=== PATIENT | female | born 1975 | race Hispanic/Latino ===

== ENCOUNTER 2016-12-16 14:08 | Inpatient (IN) | payer OTHER ==
[2016-12-16] MEDS ORDERED: Lactated Ringer's 1,000 ML IV PRN (14:31)
[2016-12-16] MEDS ORDERED: Carboprost 250 mCg/mL Inj IM PRN ×2 (14:35→15:30)
[2016-12-16] MEDS ORDERED: Betameth Ace-Betam SodPhos 6 mg/mL 5 mL Inj IM ONE (14:35)
[2016-12-16] MEDS ORDERED: Magnesium Sulf 20 Gm/500mL H2O 20 GM in IV Premix 1 EACH IV SCH (14:35)
[2016-12-16] MEDS ORDERED: Calcium GLUCOnate 10% (Gm) 1 Gm/10 mL Inj IV PRN (14:35)
[2016-12-16] MEDS ORDERED: Hemorrhage Kit, Post Partum XX ONE ×2 (14:35→15:30)
[2016-12-16] MEDS ORDERED: Sodium Chloride LOK Flush 10 mL Syringe IVFLUSH PRN (14:35)
[2016-12-16] MEDS ORDERED: Oxytocin 10 Unit/mL Inj IM PRN ×2 (14:35→15:30)
[2016-12-16] MEDS ORDERED: Magnesium Sulf 4 Gm/100 mL H2O 4 GM in IV Premix 1 EACH IV ONE (14:35)
[2016-12-16] MEDS ORDERED: Oxytocin 30 Units/500 mL LR 30 UNITS in IV Premix 1 EACH IV PRN ×2 (14:35→15:30)
[2016-12-16] MEDS ORDERED: Methylergonovine 0.2 mg/mL Inj IM PRN ×2 (14:35→15:30)
[2016-12-16] MEDS ORDERED: Magnesium Sulfate 4 Gm/100 mL Water Premix IV ONE (14:36)
[2016-12-16 15:19] LABS: Mean Corpuscular Hemoglobin 26.6 pg (27.0-35.0); Mean Corpuscular Volume 79.8 fL (81-100)
[2016-12-16] MEDS ORDERED: Lactated Ringer's 1,000 ML IV SCH (15:29)
[2016-12-16] MEDS ORDERED: LANOlin HPA 7 Gm Ointment TOPICAL PRN (15:30)
[2016-12-16] MEDS ORDERED: oxyCODONE-Acetamin 5-325 mg Tablet PO PRN (15:30)
[2016-12-16] MEDS ORDERED: Witch Hazel-Glycerin Pads TOPICAL PRN (15:30)
[2016-12-16] MEDS ORDERED: Benzocaine (Dermoplast) 20% 60 Gm Spray TOPICAL PRN (15:30)
--- NOTE | 2016-12-16 15:36 | HP ---
[address] [address] HISTORY AND PHYSICAL PATIENT: KAREN GILES : 1975 MR#: [id number] ADMIT: 12/16/2016 JOB ID: [id number] HISTORY OF PRESENT ILLNESS: The patient is a 40-year-old, 3, para one, estimated due date March 31, 2017, at 25 weeks. Presents to Labor and Delivery with complaint of spontaneous rupture of membranes at 1:45 p.m. The patient denies contractions. She reports leaking of clear amniotic fluid. She has a history of one prior delivery in 2003. Past medical history was significant for diabetes type 2 on insulin and anemia. care was with [facility], her diabetes was well controlled. The second trimester ultrasound was normal and generic testing was done and was negative. SOCIAL HISTORY: Patient denies smoking, alcohol, or illicit or recreational drug use. ALLERGIES: NKDA. PAST MEDICAL HISTORY: Diabetes type 2, anemia, obesity. MEDICATIONS: Ferrous sulfate 325 mg p.o. daily, vitamin 1 tablet p.o. daily, metformin 1000 mg p.o. b.i.d., Lantus 33 units subcu q.h.s. PHYSICAL EXAMINATION: Vital signs: Blood pressure 137/57, pulse 97, temperature 37.0. HEENT: PERRLA. Chest: Good respiratory effort. Clear bilaterally. Cardiovascular: Regular rate and rhythm. Abdomen: Gravid. Nondistended, nontender. Extremities: No pitting edema. Pelvic: AmniSure testing is positive. There is pooling of amniotic fluid in the posterior fornix of the vagina. The cervix is fingertip long. The station is high -4. The amniotic fluid is clear. ASSESSMENT AND PLAN: A 40-year-old, 3, para 1, at 25 weeks, estimated due date March 31, 2017, with spontaneous rupture of membranes at 1:45 p.m. today, prior history of delivery x1, diabetes type 2 on insulin, and iron deficiency anemia being admitted to Labor and Delivery. IV hydration is started with lactated Ringer's at 75 mL/h. Magnesium is started 4 g IV bolus, followed by 2 g/hour. Betamethasone is given 12 mg IM first dose. Antibiotics started to prolong latency. Ampicillin 2 g IV piggyback q.6 hours and azithromycin 1 g p.o. daily. The labs are being sent including CBC with differential, comprehensive metabolic panel, urinalysis, and urine culture. Group B strep culture was obtained. Hawley catheter is placed with strict I's and O's followed. The patient is being arranged to be transferred to [facility], accepting provider Dr. Ragland, phone number [phone].
[2016-12-16] MEDS ORDERED: Ascorbic Acid 500 mg Tablet PO SCH (17:30)
[2016-12-16] MEDS ORDERED: Ampicillin Inj 2,000 MG in 0.9% Sodium Chloride 100 ML IV SCH (20:30)
== END 2016-12-16 15:45 | disposition short-term general hospital (02) | DRG 781 ==
LOC: FBCO 14:08 → FBC 14:21
PROVIDERS: ADMIT Legal Medicine; ATTEND Legal Medicine
PROC: 3E033GC Introduction of Other Therapeutic Substance into Peripheral Vein, Percutaneous Approach (ICD-10-PCS; principal; 2016-12-16)
DX: O42.912 Preterm premature rupture of membranes, unspecified as to length of time between rupture and onset of labor, second trimester (principal); O24.112 Pre-existing type 2 diabetes mellitus, in pregnancy, second trimester; E11.9 Type 2 diabetes mellitus without complications; O99.012 Anemia complicating pregnancy, second trimester; D50.9 Iron deficiency anemia, unspecified; O34.219 Maternal care for unspecified type scar from previous cesarean delivery; Z3A.25 25 weeks gestation of pregnancy; Z79.4 Long term (current) use of insulin; O09.522 Supervision of elderly multigravida, second trimester